=== PATIENT | female | born 1995 | race Caucasian/White ===

== ENCOUNTER 2021-07-02 11:06 | Inpatient (IN) | payer OTHER ==
[~2021-07-02] VITALS: Ht 162.6 cm; Wt 52.3 kg
[2021-07-02 12:38] LABS: BASOPHILS % (AUTO) 0.5 % (0.0-2.0); EOSINOPHILS % (AUTO) 0.3 % (1.0-6.0); HEMOGLOBIN 13.7 g/dL (12.0-16.0); LYMPHOCYTES # (AUTO) 1.8 K/uL (1.0-4.8); LYMPHOCYTES % (AUTO) 15.9 % (22.0-44.0); MEAN CORPUSCULAR HEMOGLOBIN 28.2 pg (26.0-34.0); MEAN CORPUSCULAR HGB CONC 34.2 G/dL (31.0-37.0); MEAN CORPUSCULAR VOLUME 82 fL (80-100); MONOCYTES # (AUTO) 0.8 K/uL (0.1-1.0); MONOCYTES % (AUTO) 7.2 % (2.0-9.0); NEUTROPHILS # (AUTO) 8.5 K/uL (1.8-7.7); NEUTROPHILS % (AUTO) 76.1 % (40.0-70.0); PLATELET COUNT (AUTO) 195 K/uL (150-450); RED BLOOD CELL COUNT(AUTO) 4.86 MIL/uL (4.00-5.20); RED CELL DISTRIBUTION WIDTH 12.9 % (11.5-14.5)
[2021-07-02 12:49] LABS: ANION GAP 11 mmol/L (8-16); CALCIUM, TOTAL 9.4 mg/dL (8.8-10.5); CARBON DIOXIDE 26 mmol/L (22-29); CHLORIDE 106 mmol/L (98-107); CREATININE 0.77 mg/dL (0.60-1.30); GLOMERULAR FILTR. RATE CALC > 60 mL/min (>60); GLUCOSE,RANDOM 90 mg/dL (70-110); POTASSIUM 3.8 mmol/L (3.5-5.1); SODIUM SERUM 143 mmol/L (136-145); UREA NITROGEN, BLOOD 12 mg/dL (7-18)
[2021-07-02 13:00] LABS: ALANINE AMINOTRANSFERASE 19 U/L (12-78); ALBUMIN 4.2 g/dL (3.4-5.0); ALKALINE PHOSPHATASE 63 U/L (46-116); ASPARTATE AMINOTRANSFERASE 18 U/L (15-37); BILIRUBIN,TOTAL 0.9 mg/dL (0.1-1.0); HCG,QUANTITATIVE < 1 mIU/mL (0-6); TOTAL PROTEIN, SERUM 8.2 g/dL (6.4-8.2)
[2021-07-02 13:13] LABS: COVID AG,FIA SOURCE NASOPHARYNGEAL
[2021-07-02] MEDS ORDERED: 0.9% SODIUM CHLORIDE 10 ML SYRINGE IVP PRN (14:00)
[2021-07-02] MEDS ORDERED: ONDANSETRON HCL 4 MG/2 ML VIAL IVP PRN (14:00)
[2021-07-02] MEDS ORDERED: ACETAMINOPHEN 325 MG TABLET PO PRN (14:00)
[2021-07-02 15:05] VITALS: BP 110/69
[2021-07-02 20:20] VITALS: BP 110/69
[2021-07-03] MEDS ORDERED: LORazepam 2 MG/ML VIAL ONE (00:39)
[2021-07-03] MEDS ORDERED: LORazepam 2 MG/ML VIAL IM ONE (01:00)
[2021-07-03 07:52] VITALS: BP 114/72
[2021-07-03] MEDS ORDERED: ALBUTEROL SULFATE 2.5 MG/0.5 ML NEB SOLUTION NEB PRN (09:45)
[2021-07-03] MEDS ORDERED: ZOLPIDEM TARTRATE 5 MG TABLET PO PRN (09:45)
[2021-07-03] MEDS ORDERED: IPRATROPIUM BROMIDE 0.5 MG/2.5 ML NEB SOLUTION NEB PRN (09:45)
[2021-07-03] MEDS ORDERED: BISACODYL 10 MG RECTAL RECTAL SUPPOSITORY PR PRN (09:45)
[2021-07-03] MEDS ORDERED: MAGNESIUM HYDROXIDE SUSPENSION 30 ML UDCUP PO PRN (09:45)
[2021-07-03] MEDS ORDERED: RisperiDONE 1 MG TABLET PO SCH (10:15)
[2021-07-03 14:28] LABS: AMPHET/METH SCREEN,URINE NEGATIVE (NEGATIVE); BARBITURATE SCREEN, URINE NEGATIVE (NEGATIVE); BENZODIAZEPINES SCREEN,URINE NEGATIVE (NEGATIVE); CANNABINOID SCREEN,URINE NEGATIVE (NEGATIVE); COCAINE SCREEN,URINE NEGATIVE (NEGATIVE); METHADONE SCREEN, URINE NEGATIVE (NEGATIVE); OPIATE SCREEN,URINE NEGATIVE (NEGATIVE)
[2021-07-03 14:30] LABS: PHENCYCLIDINE SCREEN,URINE NEGATIVE (NEGATIVE)
[2021-07-03 16:00] VITALS: BP 103/66
[2021-07-03] MEDS: HEPARIN SODIUM,PORCINE 5,000 UNITS/ML VIAL SQ SCH ×2 (16:00→17:26)
[2021-07-03] MEDS: ONDANSETRON HCL 4 MG/2 ML VIAL IVP PRN (19:20)
[2021-07-03] MEDS: RisperiDONE 1 MG TABLET PO SCH (19:56)
[2021-07-03 20:01] VITALS: BP 114/72
[2021-07-04] MEDS: ACETAMINOPHEN 325 MG TABLET PO PRN (04:07)
[2021-07-04] MEDS: HEPARIN SODIUM,PORCINE 5,000 UNITS/ML VIAL SQ SCH ×3 (08:00→16:00)
[2021-07-04] MEDS: RisperiDONE 1 MG TABLET PO SCH ×3 (08:39→20:35)
[2021-07-04] MEDS: PANTOPRAZOLE SODIUM 40 MG/VIAL IVP SCH (08:39)
[2021-07-04] MEDS ORDERED: RisperiDONE 1 MG TABLET PO SCH (09:00)
[2021-07-04 10:01] VITALS: BP 113/67
[2021-07-04 11:35] LABS: BASOPHILS % (AUTO) 0.6 % (0.0-2.0); EOSINOPHILS % (AUTO) 0.5 % (1.0-6.0); HEMOGLOBIN 13.7 g/dL (12.0-16.0); LYMPHOCYTES # (AUTO) 1.5 K/uL (1.0-4.8); LYMPHOCYTES % (AUTO) 24.8 % (22.0-44.0); MEAN CORPUSCULAR HEMOGLOBIN 28.4 pg (26.0-34.0); MEAN CORPUSCULAR HGB CONC 34.2 G/dL (31.0-37.0); MEAN CORPUSCULAR VOLUME 83 fL (80-100); MONOCYTES # (AUTO) 0.4 K/uL (0.1-1.0); MONOCYTES % (AUTO) 7.4 % (2.0-9.0); NEUTROPHILS % (AUTO) 66.7 % (40.0-70.0); PLATELET COUNT (AUTO) 148 K/uL (150-450); RED BLOOD CELL COUNT(AUTO) 4.82 MIL/uL (4.00-5.20); RED CELL DISTRIBUTION WIDTH 13.2 % (11.5-14.5)
[2021-07-04 12:05] LABS: ALANINE AMINOTRANSFERASE 22 U/L (12-78); ALBUMIN 3.7 g/dL (3.4-5.0); ALKALINE PHOSPHATASE 61 U/L (46-116); ANION GAP 10 mmol/L (8-16); ASPARTATE AMINOTRANSFERASE 20 U/L (15-37); BILIRUBIN,TOTAL 0.7 mg/dL (0.1-1.0); CARBON DIOXIDE 28 mmol/L (22-29); CHLORIDE 99 mmol/L (98-107); GLOMERULAR FILTR. RATE CALC > 60 mL/min (>60); GLUCOSE,RANDOM 116 mg/dL (70-110); SODIUM SERUM 137 mmol/L (136-145); TOTAL PROTEIN, SERUM 7.5 g/dL (6.4-8.2); UREA NITROGEN, BLOOD 8 mg/dL (7-18)
[2021-07-04] MEDS ORDERED: POTASSIUM CHLORIDE 20 MEQ ER TABLET PO ONE (12:30)
[2021-07-04 15:32] VITALS: BP 115/67
[2021-07-04 20:05] VITALS: BP 110/65
[2021-07-05] MEDS: HEPARIN SODIUM,PORCINE 5,000 UNITS/ML VIAL SQ SCH ×5 (00:49→16:00)
[2021-07-05 05:15] VITALS: BP 115/80
[2021-07-05 06:36] LABS: ALANINE AMINOTRANSFERASE 19 U/L (12-78); ALBUMIN 3.5 g/dL (3.4-5.0); ALKALINE PHOSPHATASE 55 U/L (46-116); ANION GAP 5 mmol/L (8-16); ASPARTATE AMINOTRANSFERASE 17 U/L (15-37); BILIRUBIN,TOTAL 0.5 mg/dL (0.1-1.0); CARBON DIOXIDE 29 mmol/L (22-29); CHLORIDE 104 mmol/L (98-107); CREATININE 0.69 mg/dL (0.60-1.30); GLOMERULAR FILTR. RATE CALC > 60 mL/min (>60); GLUCOSE,RANDOM 95 mg/dL (70-110); POTASSIUM 3.6 mmol/L (3.5-5.1); SODIUM SERUM 138 mmol/L (136-145); TOTAL PROTEIN, SERUM 7.1 g/dL (6.4-8.2); UREA NITROGEN, BLOOD 7 mg/dL (7-18)
[2021-07-05 07:18] VITALS: BP 106/74
[2021-07-05] MEDS: PANTOPRAZOLE SODIUM 40 MG/VIAL IVP SCH ×2 (08:29→08:39)
[2021-07-05] MEDS: RisperiDONE 1 MG TABLET PO SCH ×2 (08:30→19:43)
[2021-07-05] MEDS: LORazepam 2 MG TABLET PO PRN (12:27)
[2021-07-05 19:40] VITALS: BP 103/70
[2021-07-06] MEDS: HEPARIN SODIUM,PORCINE 5,000 UNITS/ML VIAL SQ SCH ×4 (03:34→23:36)
[2021-07-06] MEDS: LORazepam 2 MG TABLET PO PRN (03:36)
[2021-07-06 08:27] VITALS: BP 107/71
[2021-07-06] MEDS: PANTOPRAZOLE SODIUM 40 MG DR TABLET PO SCH (08:50)
[2021-07-06] MEDS: RisperiDONE 1 MG TABLET PO SCH ×2 (08:50→20:14)
[2021-07-06] MEDS: ONDANSETRON HCL 4 MG/2 ML VIAL IVP PRN (10:30)
[2021-07-06 20:13] VITALS: BP 107/57
[2021-07-06] MEDS: ACETAMINOPHEN 325 MG TABLET PO PRN (20:14)
[2021-07-07] MEDS: ACETAMINOPHEN 325 MG TABLET PO PRN (02:36)
[2021-07-07 05:28] VITALS: BP 111/75
[2021-07-07 07:50] VITALS: BP 115/53
[2021-07-07] MEDS: HEPARIN SODIUM,PORCINE 5,000 UNITS/ML VIAL SQ SCH ×3 (08:04→23:16)
[2021-07-07] MEDS: RisperiDONE 1 MG TABLET PO SCH ×2 (08:04→20:52)
[2021-07-07] MEDS: PANTOPRAZOLE SODIUM 40 MG DR TABLET PO SCH (08:04)
[2021-07-07 21:04] VITALS: BP 101/59
[2021-07-08 05:16] VITALS: BP 116/72
[2021-07-08 07:30] VITALS: BP 96/59
[2021-07-08] MEDS: HEPARIN SODIUM,PORCINE 5,000 UNITS/ML VIAL SQ SCH ×3 (08:00→23:27)
[2021-07-08] MEDS: PANTOPRAZOLE SODIUM 40 MG DR TABLET PO SCH (09:48)
[2021-07-08] MEDS: RisperiDONE 1 MG TABLET PO SCH ×2 (09:49→20:17)
[2021-07-08] MEDS: LORazepam 2 MG TABLET PO PRN (10:19)
[2021-07-08] MEDS: ACETAMINOPHEN 325 MG TABLET PO PRN (16:56)
[2021-07-08] MEDS ORDERED: HALOPERIDOL LACTATE 5 MG/ML VIAL IM ONE (21:00)
[2021-07-08] MEDS ORDERED: DiphenhydrAMINE HCL 50 MG/ML VIAL IVP ONE (21:00)
[2021-07-08] MEDS ORDERED: LORazepam 2 MG/ML VIAL IVP ONE (21:00)
[2021-07-08 21:10] VITALS: BP 110/70
[2021-07-09] MEDS: ACETAMINOPHEN 325 MG TABLET PO PRN (00:56)
[2021-07-09 03:28] VITALS: BP 112/73
[2021-07-09 05:26] VITALS: BP 110/72
[2021-07-09 08:00] VITALS: BP 132/78
[2021-07-09] MEDS: HEPARIN SODIUM,PORCINE 5,000 UNITS/ML VIAL SQ SCH (10:32)
[2021-07-09] MEDS: PANTOPRAZOLE SODIUM 40 MG DR TABLET PO SCH (10:32)
[2021-07-09] MEDS: RisperiDONE 1 MG TABLET PO SCH (10:32)
[2021-07-09] MEDS ORDERED: RISP2TAB76 PO (12:48)
== END 2021-07-09 15:21 | DRG 885 ==
LOC: EMS 11:11 → 6S 14:45
PROVIDERS: ADMIT Hospitalist; ATTEND Hospitalist
DX: F29 Unspecified psychosis not due to a substance or known physiological condition (principal); R45.851 Suicidal ideations; R47.01 Aphasia; E87.6 Hypokalemia; Z20.822 Contact with and (suspected) exposure to COVID-19; F31.9 Bipolar disorder, unspecified; F22 Delusional disorders; Z85.3 Personal history of malignant neoplasm of breast
CPT/HCPCS: 80053; 83735; 84702; 85025; 99285; C9113; G0480; J1630; J1644; J2060; J2405